=== PATIENT | female | born 1960 | race Caucasian/White ===

== ENCOUNTER 2019-04-13 20:40 | Emergency (ER) | payer BC ==
[2019-04-13 20:49] VITALS: TEMP 98.3; BMI 27.4
--- NOTE | 2019-04-13 21:19 | PDOC ---
History of Present Illness - General Chief Complaint: Eye Problem Stated Complaint: EYE PROBLEM Time Seen by Provider: 04/13/19 21:01 History Source: Patient Exam Limitations: No Limitations - History of Present Illness Initial Comments: 04/13/19 21:11 HISTORY OF PRESENT ILLNESS: 58-year-old woman denies medical history presents emergency department for evaluation of sudden onset right sided periorbital pain which worsens with lateral gaze of her right eye. Patient reports she was sitting at home watching television when the pain came on suddenly approximately 1 hour prior to arrival. She denies any headaches, nausea, vomiting, blurry vision, double vision, dizziness, fevers or chills. No recent travel or sick contacts. PAST MEDICAL HISTORY: Denies past medical history SURGICAL HISTORY: Denies ALLERGIES: No known drug allergies REVIEW OF SYSTEMS General/Constitutional: Denies fever or chills. Denies weakness, weight change. HEENT: see HPI Cardiovascular: Denies chest pain or shortness of breath. Respiratory: Denies cough, wheezing, or hemoptysis. Gastrointestinal: Denies nausea, vomiting, diarrhea or constipation. Denies rectal bleeding. Genitourinary: Denies dysuria, frequency, or change in urination. Musculoskeletal: Denies joint or muscle swelling or pain. Denies neck or back pain. Skin and breasts: Denies rash or easy bruising. Neurologic: Denies headache, vertigo, loss of consciousness, or loss of sensation. Psychiatric: Denies depression or anxiety. Endocrine: Denies increased thirst. Denies abnormal weight change. Hematologic/Lymphatic: Denies anemia, easy bleeding, or history of blood clots. Allergic/Immunologic: Denies hives or skin allergy. Denies latex allergy. PHYSICAL EXAM General Appearance: Well-appearing, appropriately dressed. No apparent distress , no intoxication. HEENT: EOMI, PERRLA, normal ENT inspection, normal voice, TMs normal, pharynx normal. No conjunctival pallor. No photophobia, scleral icterus. Neck: Supple. Trachea midline. No tenderness, rigidity, carotid bruit, stridor , lymphadenopathy, or thyromegaly. Respiratory/Chest: Lungs CTAB. No shortness of breath, chest tenderness, respiratory distress, accessory muscle use. No crackles, rales, rhonchi, stridor , wheezing, dullness Cardiovascular: RRR. S1, S2. No JVD, murmur, bradycardia, tachycardia. Vascular Pulses: Dorsalis-Pedis (R): 2+, Dorsalis-Pedis (L): 2+ Gastrointestinal/Abdominal: Normal bowel sounds. Abdomen soft, non-distended. No tenderness or rebound tenderness. No organomegaly, pulsatile mass, guarding, hernia, hepatomegaly, splenomegaly. Lymphatic: No adenopathy, tenderness. Musculoskeletal/Extremities: Normal inspection. FROM of all extremities, normal capillary refill. Pelvis Stable. No CVA tenderness. No tenderness to extremities, pedal edema, swelling, erythema or deformity. Integumentary: Appropriate color, dry, warm. No cyanosis, erythema, jaundice or rash Neurologic: construction equipment mechanic II-XII intact. Fully oriented, alert. Appropriate mood/affect. Motor strength 5/5. No appreciable EOM palsy, facial droop or sensory deficit. 04/13/19 21:20 Past History - Past Medical History Allergies/Adverse Reactions: Allergies Allergy/AdvReac Type Severity Reaction Status Date / Time No Known Allergies Allergy Verified 04/13/19 20:43 Home Medications: Ambulatory Orders Prednisone [Prednisone 50 MG TABLETS] 50 mg PO DAILY #3 tablet 04/13/19 COPD: No - Immunization History Immunization Up to Date: No - Suicide/Smoking/Psychosocial Hx Smoking History: Former smoker Have you smoked in the past 12 months: Yes If you are a former smoker, when did you quit?: 30yrs ago Information on smoking cessation initiated: No Hx Alcohol Use: No Drug/Substance Use Hx: No *Physical Exam - Vital Signs Last Vital Signs Temp Pulse Resp BP Pulse Ox 98.3 F 67 18 158/104 H 100 04/13/19 20:45 04/13/19 20:45 04/13/19 20:45 04/13/19 20:45 04/13/19 20:45 Medical Decision Making - Medical Decision Making 04/13/19 21:21 A/P: 58-year-old woman with right lateral orbit pain EYE EXAMINATION: Visual acuity: 20/20 in the left eye, 20/20 in the right eye, near, uncorrected The lid and lashes are normal. Extraocular movements are intact. The conjunctiva is clear without erythema, injection, or discharge The pupils are equal, round and reactive to light. 5 mm bilaterally and brisk. The fundus shows normal vessels and normal discs. Extraocular movements are intact. No nystagmus is present. Sharp shooting pain to the right lateral orbit with lateral movements of the right eye. Anterior chamber appears normal without obvious shallowing. Pupils equally round reactive to light and accommodation. Right lateral subconjunctival hemorrhage present. Noncontrast head CT Reassess 04/13/19 22:33 CT of the head as read by imaging front desk worker: Normal CT scan of the head. No intrarenal hemorrhages, extra axial fluid collections. Repeat blood pressure is 144/93. Blood pressure elevation likely due to pain. I will discharge the patient home to follow-up with ophthalmology tomorrow. I will give the patient prescription for steroids and this can be evaluated by ophthalmology. Case is been discussed with Dr. Keller. I discussed the physical exam findings, ancillary test results and final diagnoses with the patient. I answered all of the patient's questions. The patient was satisfied with the care received and felt comfortable with the discharge plan and treatment plan. The patient will call their primary care physician within 24 hours to arrange follow-up and will return to the Emergency Department with any new, persistent or worsening symptoms. Portions of this note have been documented using voice recognition software. As a result, errors may occur in the 3rd grade teacher process. Effort has been made to correct all grammatical and 3rd grade teacher error, but some may have been missed. 04/13/19 22:41 *DC/Admit/Observation/Transfer Diagnosis at time of Disposition: Subconjunctival hemorrhage of right eye - Discharge Dispostion Disposition: HOME Condition at time of disposition: Stable - Prescriptions Prescriptions: Prednisone [Prednisone 50 MG TABLETS] 50 mg PO DAILY #3 tablet - Referrals Referrals: Israel Madera MD [Staff Physician] - Gamal Cross MD [Staff Physician] - Shawn Laguerre MD [Staff Physician] - - Patient Instructions Additional Instructions: You've been given the number for 3 different supermarket manager. Contact for evaluation tomorrow. Should you experience visual changes, worsening pain, headaches, dizziness return to the emergency department immediately. Go to the closest ER. Thank you very much for choosing us to provide your emergent health care needs. - Post Discharge Activity
[2019-04-13 23:01] VITALS: BP 144/93; PULSE 63
== END 2019-04-13 23:01 | disposition home or self-care (01) ==
LOC: JER 20:40
PROC: 4A07X0Z Measurement of Visual Acuity, External Approach (ICD-10-PCS; principal; 2019-04-13)
DX: H11.31 Conjunctival hemorrhage, right eye (principal)
CPT/HCPCS: 70450-TC; 99281-25